=== PATIENT | female | born 1990 | race Caucasian/White ===

== ENCOUNTER 2024-01-11 10:51 | Emergency (ER) | payer OTHER, MEDICAID, SELFPAY ==
[2024-01-11 11:04] VITALS: BP 122/80; PULSE 82; RESP 20; TEMP 36.6; O2SAT 100
--- NOTE | 2024-01-11 11:16 | ED.FEMALEGU ---
HPI - Female Genitourinary General Chief complaint: Urogenital-Female Stated complaint: STD Exposure Time Seen by Provider: 01/11/24 11:40 Source: patient and RN notes reviewed Mode of arrival: ambulatory Limitations: no limitations History of Present Illness HPI Narrative: 33-year-old female presents with concern for screening for STDs. She denies symptoms, reports she likes to get tested annually. [facility] for insurance reasons. She denies any discharge, dysuria, frequency, urgency, abdominal pain. Denies any concerns or other symptoms. MD elicited complaint: possible STD Related Data Home Medications Medication Instructions Recorded Confirmed amitriptyline 10 mg tablet 10 mg PO QHS 01/11/24 01/11/24 meloxicam 15 mg tablet 15 mg PO DAILY 01/11/24 01/11/24 metoprolol tartrate 50 mg tablet 50 mg PO BID 01/11/24 01/11/24 Allergies Allergy/AdvReac Type Severity Reaction Status Date / Time No Known Allergies Allergy Verified 01/11/24 11:46 Review of Systems Review of Systems: CONSTITUTIONAL: Denies malaise, chills, sweats, or fever. CARDIOVASCULAR: Denies chest pain, palpitations, or edema. RESPIRATORY: Denies cough or dyspnea. GASTROINTESTINAL: Denies abdominal pain, nausea, vomiting, diarrhea GENITOURINARY: Denies dysuria, frequency, urgency, suprapubic pressure. Denies flank pain or hematuria. SKIN: Denies rash or itching. MUSCULOSKELETAL: Denies back pain or myalgia. All systems reviewed & are unremarkable except as noted in HPI and below PMFSH Comments At time of signature, agree with nursing past medical, surgical, social and family history. There is no relevant family history pertinent to the presenting complaint Exam Narrative: GENERAL: Well-appearing, well-nourished, and in no acute distress. HEAD: Normocephalic. EYES: PERRLA, conjunctivae clear. NECK: Supple. No lymphadenopathy CHEST: Clear to auscultation. No respiratory distress. HEART: Regular rate and rhythm. SKIN: Warm, dry, no rash. NEURO: Alert and oriented x3. PSYCH: Normal mood and affect Course Course Emergency Course: Patient is aware of diagnosis, understands and agrees to treatment plan. Anticipatory guidance given. Patient agrees to follow-up as directed and is aware of reasons to seek care at the emergency department. Portions of this record may have been created with voice recognition software Level of Care: Express Care Visit Vital Signs Vital signs: Vital Signs Temperature 98 F 01/11/24 11:04 Pulse Rate 82 01/11/24 11:04 Respiratory Rate 20 01/11/24 11:04 Blood Pressure 122/80 01/11/24 11:04 Pulse Oximetry 100 01/11/24 11:04 Oxygen Delivery Room Air 01/11/24 11:04 Temperature 98 F 01/11/24 11:04 Pulse Rate 82 01/11/24 11:04 Respiratory Rate 20 01/11/24 11:04 Blood Pressure 122/80 01/11/24 11:04 Pulse Oximetry 100 01/11/24 11:04 Oxygen Delivery Room Air 01/11/24 11:04 Reviewed. MDM - Female Genitourinary MDM Narrative Medical decision making narrative: Exam findings show no acute concerns or changes; patient is non-toxic appearing and is in no distress. Patient is appropriate for outpatient treatment and follow-up. Differential Diagnosis Differential diagnosis: Likely urinary tract infection and cystitis Critical Care Time Critical Care Time Critical Care Time: No Discharge Plan Discharge Clinical Impression: Screen for STD (sexually transmitted disease) Patient Disposition: Home, Self-Care Condition: Stable Instructions: Safe Sex Practices (ED) Additional Instructions: You have been tested for potential gonorrhea, chlamydia, and trichomoniasis today. You will receive a phone call in 2-3 days with the results of today's testing, if you have any positive results you will be prescribed an antibiotic at that time, you may have to return for an injection. It is very important that yo
[2024-01-11 20:42] LABS: Trichomonas Vag PCR NOT DETECTED (NOT DETECTE)
[2024-01-11 21:08] LABS: Chlamydia trachomatis NOT DETECTED (NOT DETECTE); Neisseria gonorrhoeae PCR NOT DETECTED (NOT DETECTE)
== END 2024-01-11 11:50 | disposition home or self-care (01) ==
PROVIDERS: Emergency Provider Nurse Practitioner
DX: Z11.3 Encounter for screening for infections with a predominantly sexual mode of transmission (principal); M06.9 Rheumatoid arthritis, unspecified; I34.0 Nonrheumatic mitral (valve) insufficiency
CPT/HCPCS: 87491; 87591; 87661; 99214; G0463